=== PATIENT | male | born 1935 | race Hispanic/Latino ===

== ENCOUNTER 2021-05-08 10:59 | Inpatient (IN) | payer OTHER, SELFPAY ==
[~2021-05-08] VITALS: Ht 162.6 cm; Wt 67.7 kg
[2021-05-08 12:37] LABS: MEAN CORPUSCULAR HEMOGLOBIN 31.7 pg (27.0-33.0); MEAN CORPUSCULAR HGB CONC 32.7 g/dL (32.0-36.0); MEAN CORPUSCULAR VOLUME 96.9 fL (79-99); RED BLOOD CELL COUNT(AUTO) 3.82 MIL/uL (4.50-6.20); RED CELL DISTRIBUTION WIDTH 13.3 % (11.0-15.5)
[2021-05-08 12:47] LABS: CREATININE 0.7 mg/dL (0.5-1.5); POTASSIUM 4.1 mmol/L (3.5-5.1)
[2021-05-08 12:48] LABS: INR 1.05 (0.85-1.15); PROTHROMBIN TIME 11.4 SEC (9.6-11.6)
[2021-05-08 12:49] LABS: PARTIAL THROMBOPLASTIN TIME 29.1 SEC (26.3-35.5)
[2021-05-08 12:52] LABS: ALBUMIN 3.1 g/dL (3.5-5.0); BILIRUBIN,TOTAL 0.7 mg/dL (0.2-1.0); MAGNESIUM 1.6 mg/dL (1.80-2.40); TOTAL PROTEIN, SERUM 8.1 g/dL (6.0-8.3)
[2021-05-08 16:00] VITALS: BP 150/81
[2021-05-08] MEDS ORDERED: IOHEXOL-350 75 ML VIAL IV ONE (16:29)
[2021-05-08] MEDS ORDERED: MAGNESIUM 2GM PREMIX 50ML 50 ML IV ONE (17:00)
[2021-05-08 20:00] VITALS: BP 153/93
[2021-05-08] MEDS: 0.9%NACL 1000ML 1,000 ML IV SCH (21:46)
[2021-05-09] VITALS: BP 117/75
[2021-05-09 04:00] VITALS: BP 144/77
[2021-05-09] MEDS ORDERED: POTASSIUM CHLORIDE 20MEQ/100ML 100 ML IV PRN ×2 (06:00)
[2021-05-09] MEDS ORDERED: LIDOCAINE HCL-MPF 1% 2ML VIAL IV PRN ×2 (06:00)
[2021-05-09] MEDS ORDERED: DEXTROSE 50%-WATER 50 ML DISP.SYRIN IV PRN (06:00)
[2021-05-09] MEDS ORDERED: ONDANSETRON 4MG INJ IVP PRN (06:00)
[2021-05-09] MEDS ORDERED: KCL 20 MEQ ERTAB PO PRN (06:00)
[2021-05-09] MEDS ORDERED: POTASSIUM CHLORIDE 10% ELIXIR 20 MEQ/15 ML UDCUP PO PRN (06:00)
[2021-05-09] MEDS ORDERED: GLUCAGON 1MG KIT 1 MG ML IM PRN (06:00)
[2021-05-09] MEDS ORDERED: ACETAMINOPHEN 325 MG TAB PO PRN (06:00)
[2021-05-09 07:30] VITALS: BP 159/85
[2021-05-09 07:39] LABS: MAGNESIUM 1.7 mg/dL (1.80-2.40); POTASSIUM 4.2 mmol/L (3.5-5.1)
[2021-05-09] MEDS ORDERED: DIATR MEGLU/DIATRIZOATE SODIUM 30 ML BOTTLE ONE (08:05)
[2021-05-09] MEDS: 0.9%NACL 1000ML 1,000 ML IV SCH ×2 (10:10→16:57)
[2021-05-09 11:00] VITALS: BP 144/73
[2021-05-09] MEDS ORDERED: IOHEXOL 350 MG/ML 100ML INFUS..BTL IV ONE (11:08)
[2021-05-09 16:00] VITALS: BP 157/80
[2021-05-09] MEDS ORDERED: MAGNESIUM 2GM PREMIX 50ML 50 ML IV SCH (18:00)
[2021-05-09] MEDS ORDERED: CYAN50009 PO (18:49)
[2021-05-09] MEDS ORDERED: CHOL500051 PO (18:49)
[2021-05-09] MEDS ORDERED: ASCO500T20 PO (18:49)
[2021-05-09] MEDS ORDERED: BENZ200C53 PO (18:49)
[2021-05-09] MEDS ORDERED: SERT-439 PO (18:50)
[2021-05-09] MEDS ORDERED: ATOR10 PO (18:50)
[2021-05-09] MEDS ORDERED: OMEP-420 PO (18:50)
[2021-05-09] MEDS ORDERED: TAMS-1 PO (18:50)
[2021-05-09] MEDS ORDERED: CETI10TA87 PO (18:50)
[2021-05-09] MEDS ORDERED: CEFTRIAXONE 2GM VIAL IVP SCH (19:00)
[2021-05-09] MEDS ORDERED: LEVOFLOXACIN 500 MG/D5W 100 ML 100 ML IV SCH (19:00)
[2021-05-09 20:00] VITALS: BP 132/73
[2021-05-10] VITALS: BP 91/56
[2021-05-10 04:00] VITALS: BP 136/78
[2021-05-10 04:29] LABS: RETICULOCYTE % (AUTO) 2.05 % (0.42-2.23)
[2021-05-10 04:59] LABS: % IRON SATURATION 25.9 % (30-44)
[2021-05-10 05:29] LABS: THYROID STIMULATING HORMONE 2.62 uIU/mL (0.36-3.74)
[2021-05-10] MEDS ORDERED: PRED20TA3 PO (07:01)
[2021-05-10] MEDS ORDERED: LEVO500T90 PO (07:01)
[2021-05-10] MEDS ORDERED: SODIUM CHLORIDE 3% FOR INHALATION 4 ML/AMP VIAL.NEB IH ONE (07:04)
[2021-05-10 07:30] VITALS: BP 158/60
[2021-05-10] MEDS ORDERED: PREDNISONE 20 MG TABLET PO SCH (07:30)
[2021-05-10] MEDS ORDERED: IRON SUCROSE COMPLEX 300 MG in 0.9%NACL 50ML 50 ML IV SCH (07:30)
[2021-05-10] MEDS ORDERED: COMPOUND IV MISC 1 EACH IVSOLN MISC PRN (07:30)
[2021-05-10] MEDS ORDERED: SERTRALINE HCL 50 MG TABLET PO SCH (09:00)
[2021-05-10] MEDS ORDERED: CHOLECALCIFEROL 125 MCG PO SCH (09:00)
[2021-05-10] MEDS ORDERED: PANTOPRAZOLE 40 MG TAB DR PO SCH (09:00)
[2021-05-10] MEDS ORDERED: CETIRIZINE HCL 5 MG TABLET PO SCH (09:00)
[2021-05-10] MEDS ORDERED: ASCORBIC ACID 500 MG TAB PO SCH (09:00)
[2021-05-10] MEDS ORDERED: BENZONATATE PO SCH (09:00)
[2021-05-10] MEDS ORDERED: CYANOCOBALAMIN (VITAMIN B-12) 1,000 MCG TABLET PO SCH (09:00)
[2021-05-10] MEDS ORDERED: TAMSULOSIN HCL 0.4 MG CAP.ER.24H PO SCH (21:00)
[2021-05-10] MEDS ORDERED: ATORVASTATIN 10 MG TABLET PO SCH (21:00)
== END 2021-05-10 11:15 | disposition home or self-care (01) | DRG 194 ==
LOC: EDH 10:59 → EDHIP 11:00 → 4BH 11:45
PROVIDERS: ADMIT Internal Medicine; ATTEND Internal Medicine
DX: J18.9 Pneumonia, unspecified organism (principal); G91.2 (Idiopathic) normal pressure hydrocephalus; E87.1 Hypo-osmolality and hyponatremia; K76.6 Portal hypertension; J84.10 Pulmonary fibrosis, unspecified; K21.9 Gastro-esophageal reflux disease without esophagitis; F32.A Depression, unspecified; I10 Essential (primary) hypertension; E78.5 Hyperlipidemia, unspecified; N40.0 Benign prostatic hyperplasia without lower urinary tract symptoms; R16.1 Splenomegaly, not elsewhere classified; K59.00 Constipation, unspecified; D50.9 Iron deficiency anemia, unspecified; K70.30 Alcoholic cirrhosis of liver without ascites; R63.4 Abnormal weight loss; Z87.891 Personal history of nicotine dependence
CPT/HCPCS: 36415; 71275; 74178; 80053; 80074; 82105; 82378; 82550; 82607; 82728; 82746; 83540; 83550; 83735; 83874; 83880; 84132; 84145; 84153; 84443; 84484; 85027; 85045; 85610; 85651; 85730; 86038; 86140; 86215; 86431; 87071; 87205; 93306; 93356; 94640; G0378; J0696; J1756; J1956; J3475; Q9963; Q9967